=== PATIENT | female | born 1980 | race Caucasian/White ===

== ENCOUNTER → 2016-06-06 | Outpatient (CLI) | payer BC, OTHER ==
[2016-06-06 11:17] LABS: CH 31.8; CHCM 34.1; HCT 35.1 % (34.0-46.0); HDW 2.52; HGB 11.7 gm/dL (11.4-16.0); MCH 31.3 pg (25.0-35.0); MCHC 33.3 g/dL (31.0-37.0); MCV 93.9 fL (80.0-100.0); Mean Platelet Volume 8.3; RBC 3.74 m/uL (3.80-5.40); RDW 13.6 % (11.5-15.5); WBC 11.6 k/uL (3.8-10.6)
== END ==
LOC: LABWHC1 10:02
PROVIDERS: ATTEND Obstetrics & Gynecology
DX: Z34.92 Encounter for supervision of normal pregnancy, unspecified, second trimester (principal); Z3A.00 Weeks of gestation of pregnancy not specified
CPT/HCPCS: 36415; 82950; 85027

== ENCOUNTER 2016-09-25 06:12 | Inpatient (IN) | payer BC, OTHER ==
[2016-09-25] MEDS ORDERED: OXYTOCIN 10 UNIT/ML 1 ML VIAL IM PRN (06:22)
[2016-09-25] MEDS ORDERED: LIDOCAINE 1% (PF) 10 MG/ML (30 ML SDV) SQ PRN (06:22)
[2016-09-25] MEDS ORDERED: METHYLERGONOVINE 0.2 MG/ML 1 ML AMP IM PRN (06:22)
[2016-09-25] MEDS ORDERED: CARBOPROST TROMETHAMINE 250 MCG/ML 1 ML AMP IM PRN (06:22)
[2016-09-25] MEDS ORDERED: TERBUTALINE 1 MG/ML VIAL SQ PRN (06:22)
[2016-09-25] MEDS ORDERED: OXYTOCIN 20 UNITS/1000 ML NS 1,000 ML IV SCH ×2 (06:30→20:00)
[2016-09-25] MEDS: LACTATED RINGERS 1,000 ML IV SCH ×4 (06:35→18:39)
--- NOTE | 2016-09-25 06:50 | P.HPOB ---
History of Present Illness H&P Date: 09/25/16 Chief Complaint: Induction of Labor 35 year old presents at 40 weeks 4 days for induction of labor. Her cervix is 2 cm dilated, 70% effaced, -2 station. She is not senia. heart tones 130-135 with moderate variability and reactive. Review of Systems All systems: negative Constitutional: Denies chills, Denies fever Eyes: denies blurred vision, denies pain Ears, nose, mouth and throat: Denies headache, Denies sore throat Cardiovascular: Denies chest pain, Denies shortness of breath Respiratory: Denies cough Gastrointestinal: Denies abdominal pain, Denies diarrhea, Denies nausea, Denies vomiting Genitourinary: Denies dysuria, Denies hematuria Musculoskeletal: Denies myalgias Integumentary: Denies pruritus, Denies rash Neurological: Denies numbness, Denies weakness Psychiatric: Denies anxiety, Denies depression Endocrine: Denies fatigue, Denies weight change Past Medical History Past Medical History: Asthma, GERD/Reflux Additional Past Medical History / Comment(s): Obstetric history: She's had 2 previous vaginal deliveries, this is her third . She's had care with ne since 10 weeks gestation. Blood type O+, antibodies negative, rubella immune, RPR nonreactive, hepatitis B negative, HIV nonreactive. GBS negative. Normal anatomy ultrasound. Reactive NSTs since 32 weeks. History of Any Multi-Drug Resistant Organisms: None Reported Past Surgical History: Cholecystectomy, Orthopedic Surgery (Plates and screws and left ulna), Tonsillectomy Past Anesthesia/Blood Transfusion Reactions: No Reported Reaction Past Psychological History: ADD/ADHD Smoking Status: Never smoker Past Alcohol Use History: None Reported Past Drug Use History: None Reported Medications and Allergies Home Medications Medication Instructions Recorded Confirmed Type Pnv,Calcium 72/Iron/Folic Acid 1 tab PO DAILY 07/13/16 09/25/16 History [ Plus Tablet] Allergies Allergy/AdvReac Type Severity Reaction Status Date / Time aspirin Allergy Intermediate Rapid Verified 09/25/16 06:37 Heart Rate sulfamethoxazole AdvReac Mild Rash/Hives Verified 09/25/16 06:37 [From Bactrim] trimethoprim [From Bactrim] AdvReac Mild Rash/Hives Verified 09/25/16 06:37 Penicillins AdvReac Unknown Unknown Verified 09/25/16 06:37 Childhood Exam Osteopathic Statement: *. No significant issues noted on an osteopathic structural exam other than those noted in the History and Physical/Consult. - Vital Signs Vital signs: Intake and Output 09/24/16 09/24/16 09/25/16 14:59 22:59 06:59 Other: Weight 113.398 kg Patient Weight 09/25/16 06:59 Weight 113.398 kg Heart: Regular rate and rhythm Lungs: Clear to auscultation bilaterally Abdomen: Soft, nontender Extremities: Negative Homans sign Assessment and Plan (1) Normal labor Status: Acute Plan: 1. Admit to family place 2. Induction of labor with amniotomy and Pitocin 3. Anticipate normal vaginal delivery
[2016-09-25 06:53] LABS: Basophils % (A) 0 %; CH 31.5; CHCM 35.4; Eosinophils # (A) 0.1 k/uL (0-0.7); Eosinophils % (A) 1 %; HCT 33.6 % (34.0-46.0); HDW 2.79; HGB 11.9 gm/dL (11.4-16.0); Luc # (Auto) 0.18; Luc % (Auto) 2; Lymphocytes # (A) 2.8 k/uL (1.0-4.8); Lymphocytes % (A) 23 %; MCH 31.6 pg (25.0-35.0); MCHC 35.3 g/dL (31.0-37.0); MCV 89.5 fL (80.0-100.0); Mean Platelet Volume 8.5; Monocytes # (A) 0.6 k/uL (0-1.0); Monocytes % (A) 5 %; Neutrophils # (A) 8.7 k/uL (1.3-7.7); Neutrophils % (A) 70 %; RBC 3.75 m/uL (3.80-5.40); RDW 13.7 % (11.5-15.5); WBC 12.3 k/uL (3.8-10.6); WBC (Perox) 11.99
[2016-09-25 07:42] VITALS: BMI 42.9
[2016-09-25] MEDS ORDERED: BUTORPHANOL 1 MG/ML 1 ML VIAL IV PRN (11:40)
[2016-09-25] MEDS ORDERED: Acetaminophen-Codeine 300-30mg TAB PO PRN (20:00)
[2016-09-25] MEDS ORDERED: diphenhydrAMINE 50 MG CAP PO PRN (20:00)
[2016-09-25] MEDS ORDERED: diphenhydrAMINE 25 MG CAP PO PRN (20:00)
[2016-09-25] MEDS ORDERED: WITCH HAZEL 1 EACH MED..PAD TOPICAL PRN (20:00)
[2016-09-25] MEDS ORDERED: LANOLIN CREAM 5 GM TUBE TOPICAL PRN (20:00)
[2016-09-25] MEDS ORDERED: SIMETHICONE 80 MG CHEWABLE PO PRN (20:00)
[2016-09-25] MEDS ORDERED: HYDROCORTISONE 2.5% RECTAL CREAM 30 GM TUBE RECTAL PRN (20:00)
[2016-09-25] MEDS ORDERED: ACETAMINOPHEN TAB 325 MG TAB PO PRN (20:00)
[2016-09-25] MEDS ORDERED: ZOLPIDEM 5 MG TAB PO PRN (20:00)
[2016-09-25] MEDS ORDERED: BENZOCAINE/MENTHOL SPRAY 1 GM/SPRAY AEROSOL TOPICAL PRN (20:00)
[2016-09-25] MEDS ORDERED: diphenhydrAMINE 50 MG/ML 1 ML VIAL IVP PRN ×2 (20:00)
[2016-09-25] MEDS: IBUPROFEN 600 MG TAB PO PRN (21:12)
[2016-09-25] MEDS: SENNOSIDES-DOCUSATE SODIUM 1 EACH TAB PO SCH (21:14)
[2016-09-26] MEDS: IBUPROFEN 600 MG TAB PO PRN ×3 (06:45→19:21)
--- NOTE | 2016-09-26 08:25 | P.PROBDLV ---
Vaginal Delivery Note - . Vaginal Delivery Note: 35 year old presents at 40 weeks and 4 days for induction of labor. Her cervix is 2 cm dilated, 70% effaced, -2 station. She is senia irregularly. heart tones 135-140 with moderate variability and reactive. Pitocin was started and amniotomy was performed at 6:35 AM clear fluid noted. She progressed about 4 cm and did get an epidural. She progressed slowly throughout the day and did become completely dilated by 1945, pushed and delivered a viable male at 1946 over intact perineum under epidural anesthesia. Head delivered OA, anterior shoulder delivered gentle downward traction followed by posterior shoulder and rest of body. Nose mouth bulb suctioned, cord clamped and cut, placed mother's abdomen. Apgars 9, 9, weight 8 lbs. 6 oz. Placenta delivered spontaneously, intact with three-vessel cord at 1950. Vagina, cervix, and perineum were inspected. No lacerations noted. Estimated blood loss 150 mL. Mother and baby in stable condition.
--- NOTE | 2016-09-26 08:27 | P.PNOBGVD ---
Subjective - Subjective Principal diagnosis: Status post normal vaginal delivery day #1 Interval history: Patient seen and examined. Denies nausea, vomiting, chest pain, shortness of breath or calf pain. Patient reports: Reports appetite normal, Reports voiding normally, Reports pain well controlled, Reports ambulating normally [place]: doing well Objective - Latest Vital Signs Latest vital signs: Vital Signs Temp Pulse Resp BP 09/26/16 04:00 98.0 F 65 16 93/55 09/26/16 00:10 98.6 F 87 16 124/68 09/25/16 21:55 98.3 F 89 16 119/57 09/25/16 21:25 92 16 106/56 09/25/16 20:55 97.7 F 83 16 108/55 09/25/16 20:40 96 16 109/53 09/25/16 20:25 97.8 F 92 16 117/54 09/25/16 20:10 100 16 111/55 09/25/16 19:55 98.3 F 110 H 16 117/82 Intake and Output 09/25/16 09/26/16 09/26/16 22:59 06:59 14:59 Intake Total 2763.95 900 Balance 2763.95 900 Intake: IV 2125 900 Invasive Line 1 900 Lactated Ringers 1,000 ml 2125 @ 125 mls/hr IV .Q8H JANE Rx#:[id number] Intake, IV Titration 638.95 Amount Oxytocin 20 Units/1000 ml 38.95 Ns 1,000 ml @ 1 MILLIUNIT/MIN 3 mls/hr IV .Q24H JANE Rx#:[id number] Oxytocin 20 Units/1000 ml 600 Ns 1,000 ml @ Per Protocol IV .Q0M JANE Rx#: [id number] Other: # Voids 1 - Exam Lungs: bilateral: normal Chest: Normal S1, Normal S2 Extremities: Present: normal Abdomen: Present: normal appearance, soft Uterus: Present: normal, firm Assessment and Plan (1) Normal labor Current Visit: Yes Status: Resolved Code(s): O80 - ENCOUNTER FOR FULL-TERM UNCOMPLICATED DELIVERY; Z37.9 - OUTCOME OF DELIVERY, UNSPECIFIED SNOMED Code(s ): 93679437 (2) Normal vaginal delivery Narrative/Plan: 1. Continue care Current Visit: Yes Status: Acute Code(s): O80 - ENCOUNTER FOR FULL-TERM UNCOMPLICATED DELIVERY SNOMED Code(s): 77970764
[2016-09-26] MEDS: SENNOSIDES-DOCUSATE SODIUM 1 EACH TAB PO SCH ×2 (08:31→19:21)
[2016-09-26] MEDS: Acetaminophen-Codeine 300-30mg TAB PO PRN ×2 (08:31→16:36)
[2016-09-26] MEDS ORDERED: DIPH,PERTUS(ACELL)TETVAC-LF 0.5 ML VIAL IM ONE (22:13)
[2016-09-26] MEDS ORDERED: MEASLES-MUMPS-RUBELLA VACC/PF 12,500 UNIT/0.5 ML VIAL SQ ONE (22:14)
[2016-09-27] MEDS: IBUPROFEN 600 MG TAB PO PRN (02:19)
[2016-09-27] MEDS: SENNOSIDES-DOCUSATE SODIUM 1 EACH TAB PO SCH (07:52)
[2016-09-27 07:56] VITALS: BP 103/58; PULSE 63; RESP 16; TEMP 97.6
--- NOTE | 2016-09-27 11:56 | P.DS ---
Providers Date of admission: 09/25/16 06:12 Expected date of discharge: 09/27/16 Attending physician: Mohini Kirkland - Discharge Diagnosis(es) (1) Normal labor Current Visit: Yes Status: Resolved (2) Normal vaginal delivery Current Visit: Yes Status: Acute Hospital Course: Patient presented for induction of labor. She underwent normal vaginal delivery. Her course was uncomplicated. She denies nausea, vomiting , chest pain, shortness of breath or calf pain. She'll be discharged home post day #2 in stable condition to follow-up with me in 6 weeks. Plan - Discharge Summary New Discharge Prescriptions: New Ibuprofen [Motrin] 600 mg PO Q6HR PRN #30 tab PRN Reason: Mild Pain Or Fever >= 100.5 No Action Pnv,Calcium 72/Iron/Folic Acid [ Plus Tablet] 1 tab PO DAILY Discharge Medication List Pnv,Calcium 72/Iron/Folic Acid [ Plus Tablet] 1 tab PO DAILY 07/13/16 [ History] Ibuprofen [Motrin] 600 mg PO Q6HR PRN #30 tab 09/27/16 [Rx] Follow up Appointment(s)/Referral(s): Mohini Kirkland DO [Doctor of Osteopathic Medicine] - 6 Weeks Discharge Disposition: HOME SELF-CARE
== END 2016-09-27 15:15 | disposition home or self-care (01) | DRG 775 ==
LOC: 4FBP 06:12
PROVIDERS: ADMIT Obstetrics & Gynecology; ATTEND Obstetrics & Gynecology
PROC: 10E0XZZ Delivery of Products of Conception, External Approach (ICD-10-PCS; principal; 2016-09-25)
PROC: 3E033VJ Introduction of Other Hormone into Peripheral Vein, Percutaneous Approach (ICD-10-PCS; 2016-09-25)
PROC: 10907ZC Drainage of Amniotic Fluid, Therapeutic from Products of Conception, Via Natural or Artificial Opening (ICD-10-PCS; 2016-09-25)
PROC: 00HU33Z Insertion of Infusion Device into Spinal Canal, Percutaneous Approach (ICD-10-PCS; 2016-09-25)
PROC: 3E0R3CZ (ICD-10-PCS; 2016-09-25)
DX: O99.52 Diseases of the respiratory system complicating childbirth (principal); O99.344 Other mental disorders complicating childbirth; F90.9 Attention-deficit hyperactivity disorder, unspecified type; Z37.0 Single live birth; O99.62 Diseases of the digestive system complicating childbirth; J45.909 Unspecified asthma, uncomplicated; K21.9 Gastro-esophageal reflux disease without esophagitis; Z3A.40 40 weeks gestation of pregnancy; Z88.6 Allergy status to analgesic agent; Z88.1 Allergy status to other antibiotic agents; Z88.0 Allergy status to penicillin; Z88.2 Allergy status to sulfonamides
CPT/HCPCS: 85025; 88307; 90707; 90715